=== PATIENT | male | born 1955 | race Caucasian/White ===

== ENCOUNTER 2017-11-01 12:03 | Day surgery (SDC) | payer OTHER, MEDICAID ==
[2017-11-01 01:22] VITALS: BMI 26.4
[2017-11-01] MEDS ORDERED: HEPARIN SODIUM/NS 2,000 ML IV ONE (14:36)
[2017-11-01] MEDS ORDERED: Iohexol 350mgl/ml 50 ML ONE (14:36)
[2017-11-01] MEDS ORDERED: Lidocaine 2% Inj (20ml) ONE ×2 (14:36→15:57)
[2017-11-01] MEDS ORDERED: Iohexol 350 MG/100 ML VIAL ONE (14:36)
[2017-11-01] MEDS ORDERED: Midazolam 2 MG/2 ML VIAL ONE (14:53)
[2017-11-01] MEDS ORDERED: Eptifibatide 0.75 mg/ml 75 MG/100 ML BOTTLE IV ONE (15:17)
[2017-11-01] MEDS ORDERED: Eptifibatide 20 mg/10mL Inj IVP ONE (15:17)
[2017-11-01] MEDS ORDERED: HEPARIN SODIUM/NS 1,000 ML IV ONE (15:28)
[2017-11-01] MEDS ORDERED: Nitroglycerin 50mg in D5W 50 MG/250 ML BOTTLE IV ONE (15:48)
[2017-11-01] MEDS ORDERED: Sodium Chloride 0.45% 1,000 ML IV SCH (16:15)
[2017-11-01 16:57] VITALS: TEMP 97.8
[2017-11-01 18:06] VITALS: BP 132/80; PULSE 74; RESP 15; O2SAT 100
--- NOTE | 2017-11-06 02:04 | CARDCATH ---
PROCEDURE DATE: 11/01/2017 PROCEDURES: 1. Left heart catheterization. 2. Coronary angiogram. 3. Percutaneous coronary intervention of the proximal LAD lesion with a drug-eluting stent. 4. Radiological supervision and radiological interpretation of the coronary angiogram and percutaneous coronary intervention. CLINICAL INDICATIONS: 1. Chest pain. 2. Non-ST elevation myocardial infarction. 3. Coronary artery disease. 4. Hypertension. 5. Diabetes. 6. Hyperlipidemia. REFERRING PHYSICIANS: 1. Glenny Hernandez MD 2. Rene Muir MD PERFORMING PHYSICIAN: Bigg Crain MD PROCEDURE: After informed consent, the patient was prepped and draped in the usual sterile fashion. A 2% lidocaine was given in the right groin for local anesthesia. Using micropuncture technique, a 6-inch sheath was introduced in the right common femoral artery. A JL4 6-Eritrean diagnostic catheter engaged into left main coronary artery. Contrast injected and left coronary angiogram was performed. A JL4 6-[place]an diagnostic catheter engaged into right coronary artery. Contrast injected and right coronary angiogram was performed. A pigtail catheter was crossed into left ventricle across the aortic valve. contrast injected and LV angiogram was performed. A pigtail catheter was pulled back and gradient across the aortic valve was measured. Left heart catheterization findings: 1. Left main coronary artery is patent. 2. Proximal LAD has 99% thrombotic occlusion. Again, distal LAD and diagonal branches were patent. 3. Left circumflex and obtuse marginal branch were patent. 4. Right coronary artery was dominant and patent. 5. LV ejection fraction was approximately 65%. No wall motion abnormalities noted. EDP is 22. No gradient across the aortic valve. Percutaneous coronary intervention of the left anterior descending coronary artery. The patient was reloaded with aspirin, Plavix, and IV heparin. ACT was maintained above 250 throughout the procedure. The patient received two boluses of Integrilin. Left main coronary artery was engaged using JL4 6-[place]an guiding catheter. The lesion was crossed using Runthrough coronary wire. Two runs of aspiration were performed. Then, the lesion was pre-dilated using 2.5 x 15 compliant balloon. Then, stented with 3.0 x 28 Xience Alpine drug-eluting stent. Excellent final angiographic results with brisk GARFIELD-3 noted. CONCLUSION: 1. Single-vessel coronary artery disease as described above. 2. Successful coronary intervention of mid LAD. Recommend dual antiplatelet therapy for one year. Recommend aspirin, statin, beta-blockers, and GINO inhibitors for life. Bigg Crain MD
== END 2017-11-01 19:30 | disposition short-term general hospital (02) ==
LOC: CATH 12:03 → CCU 16:20 → CATH 19:30
PROVIDERS: ATTEND Internal Medicine Cardiovascular Disease
DX: I21.4 Non-ST elevation (NSTEMI) myocardial infarction (principal); I25.10 Atherosclerotic heart disease of native coronary artery without angina pectoris; I10 Essential (primary) hypertension; E11.9 Type 2 diabetes mellitus without complications; E78.5 Hyperlipidemia, unspecified; Z79.4 Long term (current) use of insulin
CPT/HCPCS: 85175; 87081; 93458; 99152; 99153; C1725; C1760; C1769 ×2; C1874; C1887 ×3; C1894; C9600; J0360; J1327 ×2; J1644 ×2; J2250; J3010; J7030 ×2; Q9967 ×2